=== PATIENT | female | born 1965 | race Caucasian/White ===

== ENCOUNTER 2019-12-23 13:14 | Emergency (ER) | payer OTHER ==
[2019-12-23] MEDS ORDERED: IBUPROFEN 800 MG TABLET PO ONE (13:38)
--- NOTE | 2019-12-23 13:41 | ER Document Report ---
ED Medical Screen (RME) - General Chief Complaint: Laceration Stated Complaint: FINGER LACERATION Time Seen by Provider: 12/23/19 13:35 Notes: Patient is a 54-year-old female presents emergency department with a left middle finger injury. Patient reports that she was at work when she crushed her left middle finger in a machine. Patient reports laceration to the tip of the finger. Patient has not had anything for discomfort. - Related Data Allergies/Adverse Reactions: No Known Allergies Allergy (Unverified 12/23/19 13:34) Past Medical History - Social History Chew tobacco use (# tins/day): Yes Frequency of alcohol use: None Physical Exam - Vital signs Vitals: Temp Pulse Resp BP Pulse Ox 98.3 F 74 14 236/84 H 98 12/23/19 13:21 12/23/19 13:21 12/23/19 13:21 12/23/19 13:21 12/23/19 13:21 Course - Re-evaluation Re-evalutation: 12/23/19 13:40 Patient has a laceration to the tip of the left middle finger with nailbed involvement, numbness noted distally. Tetanus shot is up-to-date, nailbed is slightly pale. - Vital Signs Vital signs: Temp Pulse Resp BP Pulse Ox 98.3 F 74 14 236/84 H 98 12/23/19 13:21 12/23/19 13:21 12/23/19 13:21 12/23/19 13:21 12/23/19 13:21
--- NOTE | 2019-12-23 14:01 | RADIOLOGY REPORT (SQ) ---
EXAM DESCRIPTION: FINGER LEFT IMAGES COMPLETED DATE/TIME: 12/23/2019 1:50 pm REASON FOR STUDY: left middle finger laceration, crush injury COMPARISON: None. NUMBER OF VIEWS: Three views. TECHNIQUE: AP, lateral, and oblique images acquired of the left third finger. LIMITATIONS: None. FINDINGS: MINERALIZATION: Normal. BONES: There is a mildly distracted 3rd digit distal phalanx tuft fracture. SOFT TISSUES: Soft tissue defect overlies the injury site. No retained radiopaque foreign body. OTHER: No other significant finding. IMPRESSION: Mildly distracted 3rd digit distal phalanx tuft fracture with overlying soft tissue margie olivera TECHNICAL DOCUMENTATION: JOB ID: [id number] 2010 [employer]- All Rights Reserved Reading location - IP/workstation name: [email or web address]
[2019-12-23] MEDS ORDERED: BUPIVACAINE HCL 0.5 % INJ/PF 30 ML SDV INJ ONE (15:25)
--- NOTE | 2019-12-23 15:27 | ER Document Report ---
ED Wound - General Chief Complaint: Laceration Stated Complaint: FINGER LACERATION Time Seen by Provider: 12/23/19 13:35 Notes: CHIEF COMPLAINT: Left third finger injury HPI: 54-year-old female [id number] presenting for left third finger injury crush type in a machine at work. Tip of the finger was caught in the machine it was her first time using the machine. Patient sustained an injury to the distal tip of the finger and the nail. Complains of some numbness to the tip of the finger. ROS: See HPI - all other systems were reviewed and are otherwise negative Constitutional: no fever Integumentary: no rash Allergy: no hives Musculoskeletal: + extremity pain or swelling Neurological: + numbness/tingling MEDICATIONS: I agree with the patient medications as charted by the RN. ALLERGIES: I agree with the allergies as charted by the RN. PAST MEDICAL HISTORY/PAST SURGICAL HISTORY: Reviewed and agree as charted by RN. SOCIAL HISTORY: Reviewed and agree as charted by RN. FAMILY HISTORY: No significant familial comorbid conditions directly related to patient complaint EXAM: Reviewed vital signs as charted by RN. CONSTITUTIONAL: Alert and oriented and responds appropriately to questions. Well-appearing; well-nourished HEAD: Normocephalic; atraumatic EYES: Conjunctivae clear, sclerae non-icteric ENT: normal nose; no rhinorrhea; moist mucous membranes NECK: Supple without meningismus CARD: Capillary refill less than 3 seconds; symmetric distal pulses RESP: Normal chest excursion without splinting or tachypnea ABD/GI: non-distended BACK: The back appears normal EXT: Normal ROM in all joints; patient is able to flex and extend the left third finger at the MCP, PIP and DIP joint space region. There is a partial avulsion of the tip of the finger with a laceration care home through the nailbed distally. Sensation is intact in the distal tip of the finger to touch although patient reports it is slightly decreased. Capillary refill less than 3 seconds in the distal portion of the fingertip that is distal to the wound. SKIN: Normal color for age and race; warm; dry; good turgor; no acute lesions noted NEURO: Moves all extremities equally; Motor and sensory function intact although slightly decreased in the tip of the finger PSYCH: The patient's mood and manner are appropriate. Grooming and personal hygiene are appropriate. MDM: 54-year-old female with a partial amputation of the distal tip of the left third finger. Sensation and capillary refill are intact in the distal portion there is a laceration and partial avulsion through the mid nail and nailbed. Will likely need to remove the nail to repair the nailbed discussed this at length with the patient aware that the nail may not grow back. We did discuss possibility of poor healing given the type of injury and the crush type injury. Patient will likely need referral to orthopedic hand surgery, this will likely be done through Workmen's Compensation for follow-up. X-ray done via triage process does show distal tuft fracture that is open. - Related Data Allergies/Adverse Reactions: No Known Allergies Allergy (Unverified 12/23/19 13:34) Past Medical History - Social History Smoking Status: Current Some Day Smoker Chew tobacco use (# tins/day): Yes Frequency of alcohol use: None Family History: Reviewed & Not Pertinent Physical Exam - Vital signs Vitals: Temp Pulse Resp BP Pulse Ox 98.3 F 74 14 236/84 H 98 12/23/19 13:21 12/23/19 13:21 12/23/19 13:21 12/23/19 13:21 12/23/19 13:21 Course - Re-evaluation Re-evalutation: 12/23/19 16:29 Complex wound repair of partial avulsion of distal left third fingertip with avulsion of nail and nailbed injury. Patient was noted to be moderately hypertensive will let nursing recheck blood pressure and notify me of any abnormal results. I discussed wound care and risks involved in healing with the patient at length during the procedure. She verbalizes understanding. There was good capillary refill of the distal flap at the end of the procedure. She will likely need to follow-up with orthopedic hand surgery for recheck closely. Sutures will need to come out in approximately 10 days. Patient is diabetic will place patient on antibiotics given the nature of the injury with open tuft fracture with a nailbed injury. - Vital Signs Vital signs: Temp Pulse Resp BP Pulse Ox 98.3 F 74 14 236/84 H 98 12/23/19 13:21 12/23/19 13:21 12/23/19 13:21 12/23/19 13:21 12/23/19 13:21 Procedures - Laceration/Wound Repair Left Distal Finger 3rd digit Time completed: 16:26 Wound length (cm): 2 Wound's Depth, Shape: Irregular, Flap, Stellate, Nail-avulsed, Contused tissue Laceration pre-procedure: Sterile PPE donned, Sterile drapes applied, Shur-Clens applied, Other Anesthetic type: 0.5% Bupivacaine - Saline digital block base of the left third finger with good results Volume Anesthetic (mLs): 3 Wound explored: Clean, No foreign body removed Irrigated w/ Saline (mLs): 500 - Copious irrigation Wound Debrided: Minimal Wound Repaired With: Sutures Suture Size/Type: 5:0, 4:0, Prolene, Other - Chromic Number of Sutures: 11 Layer Closure?: No Deep Layer Suture Size/Type: Other - Wound on the distal fingertip closed with five 4.0 Prolene sutures. Nailbed repair after removal of the fractured nail with 4 five-point 0 chromic sutures. Nail was cleaned of organic material in the base of the nail was replaced and sutured on as a temporary dressing with 3 four-point 0 Prolene sutures Post-procedure NV exam normal: Yes - Digital block unable to definitively recheck neuro status but capillary ref Complications: No Discharge - Discharge Clinical Impression: Open fracture of tuft of distal phalanx of finger, Crushing injury of finger of left hand Nail avulsion, finger Qualifiers: Encounter type: initial encounter Qualified Code(s): S61.309A - Unspecified o pen wound of unspecified finger with damage to nail, initial encounter Condition: Stable Disposition: HOME, SELF-CARE Additional Instructions: Take the medications as prescribed no driving if taking narcotics for pain. It is very important that you follow-up with orthopedics that would include hand surgery especially given your diabetes and the fact that this was an open fracture of the distal tip of the finger that required a complex repair. 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 You are being given the number for an orthopedic to follow-up with closely if they are unable to get you a quick appointment. If you have any concerns or problems please return to the emergency department for reevaluation of symptoms Prescriptions: Cephalexin Monohydrate [Keflex 500 mg Capsule] 500 mg PO Q6H 7 Days #28 capsule Hydrocodone/Acetaminophen [[place] 5-325 mg Tablet] 1 tab PO Q4 PRN #15 tablet PRN Reason: Referrals: HAWK LYNN JR, DO [ACTIVE PROVISIONAL STAFF] - Follow up as needed
[2019-12-23] MEDS ORDERED: CEPHALEXIN 500 MG CAPSULE PO ONE (16:25)
[2019-12-23] MEDS ORDERED: HYDROCODONE/ACETAMINOPHEN 5-325 MG (6 TAB/ER DISP) PO PRN (16:26)
[2019-12-23] MEDS ORDERED: HYDROCHLOROTHIAZIDE 12.5 MG TABLET PO ONE (17:00)
[2019-12-23] MEDS ORDERED: LISINOPRIL 10 MG TABLET PO ONE (17:01)
[2019-12-23 17:17] VITALS: BP 201/97
== END 2019-12-23 17:15 | disposition home or self-care (01) ==
LOC: ER 13:14
PROC: 0HQGXZZ Repair Left Hand Skin, External Approach (ICD-10-PCS; principal; 2019-12-23)
DX: S62.633B Displaced fracture of distal phalanx of left middle finger, initial encounter for open fracture (principal); M79.642 Pain in left hand; R20.0 Anesthesia of skin; W23.0XXA Caught, crushed, jammed, or pinched between moving objects, initial encounter; Y99.0 Civilian activity done for income or pay; F17.290 Nicotine dependence, other tobacco product, uncomplicated
CPT/HCPCS: 99283; 73140; 12001; J3490

== ENCOUNTER 2020-01-12 12:26 | Emergency (ER) | payer OTHER ==
[2020-01-12] MEDS ORDERED: AMLODIPINE BESYLATE 5 MG TABLET PO ONE (12:42)
[2020-01-12 12:44] VITALS: BP 215/90
--- NOTE | 2020-01-12 12:45 | ER Document Report ---
ED Suture/Wound Recheck - General Chief Complaint: Suture Removal Stated Complaint: SUTURE REMOVAL/LEFT MIDDLE FINGER Time Seen by Provider: 01/12/20 12:38 Information source: Patient Notes: This 54-year-old female presented emergency room today stating that she had had laceration wound to her left middle finger which she sustained on 22 December and she had sutures placed at that point in time and they are clearly more than ready to come out. She also has hypertension upon arrival which she has been being treated for she is on 40 mg of lisinopril she was still 205/90 we gave her a little bit of Norvasc here just to lower her and told her to inject clears her hydrochlorothiazide - Related Data Allergies/Adverse Reactions: No Known Allergies Allergy (Unverified 01/12/20 12:42) Past Medical History - General Information source: Patient - Social History Smoking Status: Current Every Day Smoker Cigarette use (# per day): Yes Chew tobacco use (# tins/day): No Smoking Education Provided: No Frequency of alcohol use: None Drug Abuse: None Family History: Reviewed & Not Pertinent Review of Systems - Review of Systems Constitutional: No symptoms reported EENT: No symptoms reported Cardiovascular: No symptoms reported Respiratory: No symptoms reported Gastrointestinal: No symptoms reported Genitourinary: No symptoms reported Female Genitourinary: No symptoms reported Musculoskeletal: No symptoms reported Skin: No symptoms reported Hematologic/Lymphatic: No symptoms reported Neurological/Psychological: No symptoms reported Physical Exam - Vital signs Interpretation: Normal - General General appearance: Appears well, Alert - HEENT Head: Normocephalic, Atraumatic Eyes: Normal Pupils: PERRL - Respiratory Respiratory status: No respiratory distress Chest status: Nontender Breath sounds: Normal Chest palpation: Normal - Cardiovascular Rhythm: Regular Heart sounds: Normal auscultation Murmur: No - Abdominal Inspection: Normal Distension: No distension Bowel sounds: Normal Tenderness: Nontender Organomegaly: No organomegaly - Back Back: Normal, Nontender - Extremities General upper extremity: Normal inspection, Nontender, Normal color, Normal ROM, Normal temperature General lower extremity: Normal inspection, Nontender, Normal color, Normal ROM, Normal temperature, Normal weight bearing. No: Shyann's sign Hand: Other - Healing wound to left middle finger sutures to be removed. - Neurological Neuro grossly intact: Yes Cognition: Normal Orientation: AAOx4 Estela Coma Scale Eye Opening: Spontaneous Estela Coma Scale Verbal: Oriented Kempner Coma Scale Motor: Obeys Commands Kempner Coma Scale Total: 15 Speech: Normal Motor strength normal: LUE, RUE, LLE, RLE Sensory: Normal - Psychological Associated symptoms: Normal affect, Normal mood - Skin Skin Temperature: Warm Skin Moisture: Dry Skin Color: Normal Course - Re-evaluation Re-evalutation: 01/12/20 12:44 Patient has been working to get her blood pressure under control she is taking 40 mg of lisinopril and 12.5 mg of hydrochlorothiazide. She has been having her pressure checked every day she is been running 220/120 today she was 205/90 here in the department we did give her 5 mg of Norvasc. She was advised to increase her hydrochlorothiazide 25 mg follow-up with her PMD in 3 to 4 days return to the ER for absolutely any change worsening condition. Discharge - Discharge Clinical Impression: Visit for suture removal Hypertension Qualifiers: Hypertension type: essential hypertension Qualified Code(s): I10 - Essential (primary) hypertension Condition: Good Disposition: HOME, SELF-CARE Instructions: Suture Removal Additional Instructions: Increase hydrochlorothiazide to 25 mg/day must follow-up with PMD in 3 to 4 days. Follow-up in the emergency room if unable to get that obtained.
== END 2020-01-12 12:59 | disposition home or self-care (01) ==
LOC: ER 12:26
DX: S61.213D Laceration without foreign body of left middle finger without damage to nail, subsequent encounter (principal); X58.XXXD Exposure to other specified factors, subsequent encounter; F17.210 Nicotine dependence, cigarettes, uncomplicated